=== PATIENT | female | born 1970 | race Two or more races ===

== ENCOUNTER 2020-08-01 16:26 | Emergency (ER) | payer MEDICAID ==
[~2020-08-01] VITALS: Ht 160 cm; Wt 100.0 kg
[2020-08-01 19:05] LABS: BASOPHILS % 0.7 % (0.0-2.0); EOSINOPHILS % 2.1 % (0.0-5.0); HEMATOCRIT. 41.9 % (36.0-48.0); HEMOGLOBIN. 14.2 g/dL (12.0-16.0); LYMPHOCYTES % 23.6 % (20.0-50.0); MEAN CORPUSCULAR HEMOGLOBIN 31.5 pg (28.0-32.0); MEAN CORPUSCULAR VOLUME 92.6 fL (81.0-99.0); MEAN PLATELET VOLUME 8.2 fl (7.4-10.4); MONOCYTES % 9.1 % (2.0-8.0); NEUTROPHILS % 64.5 % (40.0-76.0); PLATELET 192 x1000/uL (130-400); RED BLOOD CELL COUNT 4.52 mill/uL (4.2-5.4); RED CELL DISTRIBUTION WIDTH 13.4 % (11.6-14.6)
[2020-08-01 19:13] LABS: CHLORIDE 105 mEq/L (98-107)
[2020-08-01] MEDS ORDERED: LIDOCAINE HCL 1% 20ML VIAL (Pyxis) INJ INFIL ONE (20:00)
[2020-08-01] MEDS ORDERED: POTA20TA82 MT (20:49)
[2020-08-01] MEDS ORDERED: OXYCODONE HCL/ACETAMINOPHEN 5/325MG TABLET PO ONE (21:00)
[2020-08-01 21:30] VITALS: BP 130/76
== END 2020-08-01 21:45 | disposition home or self-care (01) ==
LOC: ER 16:26
DX: I50.9 Heart failure, unspecified (principal); J45.909 Unspecified asthma, uncomplicated; E78.00 Pure hypercholesterolemia, unspecified; R56.9 Unspecified convulsions; Z86.73 Personal history of transient ischemic attack (TIA), and cerebral infarction without residual deficits; Z95.0 Presence of cardiac pacemaker; Z90.49 Acquired absence of other specified parts of digestive tract; Z98.890 Other specified postprocedural states; Z88.0 Allergy status to penicillin; Z88.2 Allergy status to sulfonamides
CPT/HCPCS: 10060; 36415; 71045; 80053; 83880; 84484; 85025; 93005; 99285; A4217; J3490; Z7610

== ENCOUNTER 2020-08-05 18:47 | Emergency (ER) | payer MEDICAID ==
[~2020-08-05] VITALS: Ht 152.4 cm; Wt 100.0 kg
[~2020-08-05 18:47] MED LIST: POTA20TA82 MT
[2020-08-05] MEDS ORDERED: LIDOCAINE HCL/EPINEPHRINE 1%-EPI 1:100,000 10 ML VIAL IJ ONE (19:45)
[2020-08-05] MEDS ORDERED: LIDOCAINE HCL/EPINEPHRINE 1%-EPI 1:100,000 20 ML VIAL INFIL NR (20:00)
[2020-08-05] MEDS ORDERED: CEPH500T MT (21:28)
[2020-08-05] MEDS ORDERED: DIF15 MT (21:29)
[2020-08-05 21:53] VITALS: BP 132/75
== END 2020-08-05 21:56 | disposition home or self-care (01) ==
LOC: ER 18:47
DX: L02.811 Cutaneous abscess of head [any part, except face] (principal); J45.909 Unspecified asthma, uncomplicated; E78.00 Pure hypercholesterolemia, unspecified; G40.909 Epilepsy, unspecified, not intractable, without status epilepticus; Z90.49 Acquired absence of other specified parts of digestive tract; Z95.0 Presence of cardiac pacemaker; I50.9 Heart failure, unspecified; E03.9 Hypothyroidism, unspecified; E66.9 Obesity, unspecified; Z68.41 Body mass index [BMI] 40.0-44.9, adult; Z86.73 Personal history of transient ischemic attack (TIA), and cerebral infarction without residual deficits; Z85.9 Personal history of malignant neoplasm, unspecified; Z86.718 Personal history of other venous thrombosis and embolism; Z79.01 Long term (current) use of anticoagulants; Z88.2 Allergy status to sulfonamides; Z88.8 Allergy status to other drugs, medicaments and biological substances
CPT/HCPCS: 10060; 99283; A4217; J3490; Z7610